=== PATIENT | male | born 1985 | race Caucasian/White ===

== ENCOUNTER → 2018-07-28 | Outpatient (REF) | payer OTHER ==
[2018-07-28 17:33] LABS: HEMOGLOBIN 13.9 g/dl (13.5-17.5); MEAN CORPUSCULAR HEMOGLOBIN 31.4 pg (27.0-33.0); MEAN CORPUSCULAR HGB CONC 33.9 g/dl (32.0-36.5); MEAN CORPUSCULAR VOLUME 92.8 fl (80.0-96.0); PLATELET COUNT, AUTOMATED 161 10^3/uL (150-450); RED BLOOD COUNT 4.42 10^6/uL (4.30-6.10); WHITE BLOOD COUNT 5.1 10^3/uL (4.0-10.0)
[2018-07-28 17:39] LABS: ALBUMIN 3.9 GM/DL (3.2-5.2); ALT/SGPT 34 U/L (12-78); BILIRUBIN,TOTAL 0.7 MG/DL (0.2-1.0); BLOOD UREA NITROGEN 17 MG/DL (7-18); CALCIUM LEVEL 8.6 MG/DL (8.5-10.1); CARBON DIOXIDE LEVEL 30 MEQ/L (21-32); CHLORIDE LEVEL 105 MEQ/L (98-107); CHOLESTEROL LEVEL 177 MG/DL (<200); CHOLESTEROL RISK RATIO 2.424 (<5); CREATININE FOR GFR 0.73 MG/DL (0.70-1.30); GLOMERULAR FILTRATION RATE > 60.0 (>60); GLUCOSE, FASTING 79 MG/DL (70-100); HDL CHOLESTEROL 73 MG/DL (>40); LDL CHOLESTEROL 91 MG/DL (<100); NON-HDL-C 104 MG/DL; POTASSIUM SERUM 4.4 MEQ/L (3.5-5.1); SODIUM LEVEL 141 MEQ/L (136-145); TRIGLYCERIDES LEVEL 65 MG/DL (<150)
[2018-07-28 17:41] LABS: TOTAL 25(OH) VITAMIN D 26.2 NG/ML (30.0-100.0)
== END ==
LOC: M SFHCCLAY 10:38
PROVIDERS: ATTEND Nurse Practitioner Family
DX: F32.9 Major depressive disorder, single episode, unspecified (principal); Z13.6 Encounter for screening for cardiovascular disorders; Z80.42 Family history of malignant neoplasm of prostate

== ENCOUNTER → 2019-09-05 | Outpatient (CLI) | payer BC | LOC: M SLEEP 19:40 | PROVIDERS: ATTEND Nurse Practitioner Family | DX: R06.83 Snoring (principal) ==

== ENCOUNTER 2021-02-09 10:27 | Emergency (ER) | payer BC ==
[~2021-02-09] VITALS: Ht 170.2 cm; Wt 78.7 kg
[2021-02-09] MEDS ORDERED: CEPH500C (10:41)
[2021-02-09] MEDS ORDERED: LIDOCAINE 1% MDV 20ML VIAL SC ONE (11:15)
[2021-02-09] MEDS ORDERED: BACT800T5 PO (12:02)
[2021-02-09 12:09] VITALS: BP 126/70
== END 2021-02-09 12:19 | disposition home or self-care (01) ==
LOC: M ED 10:27
DX: L02.416 Cutaneous abscess of left lower limb (principal)

== ENCOUNTER → 2021-10-08 | Outpatient (REF) | payer OTHER ==
[~2021-10-08] MED LIST: BACT800T5 PO; CEPH500C
[2021-10-10 15:10] LABS: CREATININE, URINE 16.8 mg/dL (20.0-300.0)
== END ==
LOC: M SFHCCLAY 14:02
PROVIDERS: ATTEND Family Medicine
DX: Z00.00 Encounter for general adult medical examination without abnormal findings (principal); Z02.1 Encounter for pre-employment examination; F41.9 Anxiety disorder, unspecified; F90.9 Attention-deficit hyperactivity disorder, unspecified type

== ENCOUNTER → 2022-01-28 | Outpatient (REF) | payer BC | LOC: M SFHCCLAY 14:29 | PROVIDERS: ATTEND Nurse Practitioner Family | DX: F32.9 Major depressive disorder, single episode, unspecified (principal) ==

== ENCOUNTER → 2022-03-07 | Outpatient (REF) | payer BC ==
[2022-03-07 14:16] LABS: LUTEINIZING HORMONE 2.8 mIU/mL (1.5-9.3)
== END ==
LOC: M SFHCCLAY 08:25
PROVIDERS: ATTEND Physician Assistant
DX: R79.89 Other specified abnormal findings of blood chemistry (principal)

== ENCOUNTER → 2022-04-25 | Outpatient (CLI) | payer BC | LOC: M CLY 10:16 | PROVIDERS: ATTEND Physician Assistant | DX: R07.9 Chest pain, unspecified (principal) ==

== ENCOUNTER → 2022-12-31 | Outpatient (REF) | payer BC ==
[2022-12-31 19:08] LABS: BLOOD UREA NITROGEN 15 MG/DL (9-23); CALCIUM LEVEL 9.1 MG/DL (8.5-10.1); CARBON DIOXIDE LEVEL 29 MMOL/L (20-31); CHLORIDE LEVEL 104 MMOL/L (98-107); CREATININE FOR GFR 0.65 MG/DL (0.70-1.30); GLOMERULAR FILTRATION RATE > 60.0 (>60); GLUCOSE, FASTING 87 MG/DL (60-100); POTASSIUM SERUM 4.5 MMOL/L (3.5-5.1); SODIUM LEVEL 139 MMOL/L (136-145)
[2023-01-02 15:08] LABS: TESTOSTERONE FREE (DIRECT) 10.3 pg/mL (8.7-25.1)
== END ==
LOC: M SFHCCLAY 10:32
PROVIDERS: ATTEND Nurse Practitioner Family
DX: F41.9 Anxiety disorder, unspecified (principal); R79.89 Other specified abnormal findings of blood chemistry